=== PATIENT | female | born 1970 | race Caucasian/White ===

== ENCOUNTER 2018-08-26 18:59 | Emergency (ER) | payer SELFPAY ==
[2018-08-26] VITALS (10 sets, daily range): BP systolic 130; BP diastolic 80; PULSE 87–125; RESP 20–32; TEMP 37.1–37.7; O2SAT 94–95
--- NOTE | 2018-08-26 19:13 | W.ED.GENAD ---
Discharge Plan Disposition Patient Disposition: HOME Condition: Fair Discharge Details Chief Complaint: RespSymp Clinical Impression: Pneumonia Primary Care Provider: Unknown,Unknown ED Provider: Izabela Gonsalez Home Meds and New Rx's Prescriptions: New azithromycin 250 mg tablet 250 mg PO DAILY Qty: 4 RF: 0 Continued ibuprofen 800 mg Tablet 800 mg PO TID PRNRF: 0 Theraflu Multi-Symptom Cold 10-20-500 mg Powder In Packet 1 cap PO PRN PRNRF: 0 Discharge Instructions Instructions: Pneumonia (ED) Additional Instructions: Encourage hydration. Stop smoking. Tylenol and/or Ibuprofen as needed for discomfort. Take antibiotics as prescribed. Please follow up with primary care next week if not improved. If you develop shortness of breath, difficulty breathing, inability to stay hydrated or other new/worsening symptoms please seek care urgently once again. Stand Alone Forms: Work Release Discharge Data Discharge Date/Time-TO BE ENTERED AT DEPARTURE: 08/26/18 20:49 Medical Decision Making Patient 47 year old female, accompanied by friend, with c/c of URI x 1 week. PMH significant for splenectomy. She endorses cough, nausea, diarrhea, sore throat, nasal congestion, body aches. No CP or abdominal pain. Endorses fevers/chills. States that symptoms had been improving but have worsened today. On exam, patient has rhonchi and crackles on the right side, rhonchi primarily in right middle lobe. Patient is an active smoker. Patient appears fatigued and dehydrated. Pulse 125, afebrile. Appears nontoxic. Plan to give Tylenol and Ibuprofen to help with discomfort, will hydrate. Concerned for pneumonia. Will obtain cxr to evaluate. CXR reviewed by radiologist: FINDINGS: Lungs: Hazy/patchy opacities in the left lung base are noted. Remainder of the lungs are clear. No large effusions are noted. Pleural space: See Lungs Finding. Heart/Mediastinum: Unremarkable. No cardiomegaly. Bones/joints: Unremarkable. IMPRESSION: Differential for left lung base findings includes early/developing airspace disease versus atelectasis in the appropriate clinical setting. Labs without signfiicant abnormality. Discussed findings with the patient. She will be treated with Azithromycing. encouraged hydration. Advised on new/worsening symptoms and when to seek care urgently once again. Advised f/u with PCP in one week if not improved. Will prescribe Zofran to help with symptomatic management. Encouraged smoking cessation. All of her questions and concerns were addressed, she is in agreement iwth this plan. HPI General Mode of arrival: ambulatory. Date/Time Provider Initiated Documentation: 08/26/18 19:12. Limitations to Documentation: no limitations. Information obtained by: patient. History of Present Illness 47 year old F presents to the emergency department with the chief complaint of URI, described as moderate, with intensity rated at 5. Quality is described as aching (endorses body aches), Patient started experiencing this day(s) (7) and it has been constant. No relieving factors improve symptom(s), No exacerbating factors reported . Patient notes cough, fever/chills, loss of appetite, nausea/vomiting (enodrses nuasea, no vomiting) and shortness of breath (with cough); denies chest pain, headaches and rash. Patient did receive the following treatments prior to arrival, none Related Data Home Medications Medication Instructions Recorded Confirmed Theraflu Multi-Symptom Cold 1 cap PO PRN PRN 08/26/18 08/26/18 azithromycin 250 mg PO DAILY #4 tab 08/26/18 ibuprofen 800 mg PO TID PRN 08/26/18 08/26/18 Previous Rx's Medication Instructions Recorded azithromycin 250 mg PO DAILY #4 tab 08/26/18 Allergies Allergy/AdvReac Type Severity Reaction Status Date / Time No Known Allergies Allergy Unverified 08/26/18 19:07 General Stated Complaint: RespSymp ENRIQUE: 3 Review of Systems Constitutional Reports as per HPI, Reports chills, Reports fatigue, Reports fever(s), Denies headache(s) and Reports poor appetite Eyes Reports as per HPI, Denies eye discharge and Denies irritation ENT Reports as per HPI, Denies ear discharge, Denies otalgia, Denies headache(s), Reports nasal congestion, Reports nasal discharge, Denies sinus pain, Denies sinus pressure and Reports sore throat Cardiovascular Reports as per HPI, Denies chest pain and Denies dyspnea Respiratory Reports as per HPI, Reports cough, Denies hemoptysis, Denies dyspnea, Denies stridor and Denies wheezing Gastrointestinal Reports as per HPI, Denies abdominal pain, Reports diarrhea (was having diarrhea yesterday, this has since improved), Reports nausea and Denies vomiting Musculoskeletal Reports as per HPI (generalized body aches) Integumentary/Breasts Reports as per HPI and Denies rash Neurologic Denies headache(s) Endocrine Reports fatigue Allergic/Immunologic Denies wheezing [facility] Social History Smoking/Tobacco Use Status: Current every day Exam Const General: cooperative, healthy appearing, comfortable, no acute distress, well developed and well groomed Nutritional Appearance: average body habitus and well nourished Orientation: alert and awake [facility] Head: normal to inspection, normocephalic and atraumatic Ears: hearing grossly normal bilaterally, external ears normal and TM's normal bilaterally General nose exam: external nose normal and nares normal Face and sinus: normal facial exam, sinuses nontender and face symmetric Mouth: oral mucosae normal, lip normal, tongue normal, oropharynx normal and moist mucous membranes Teeth and gingiva: dentition normal Throat: posterior oropharynx normal, tonsils normal and uvula midline Eyes General: appearance normal, both eyes and all related structures Neck Neck: normal visual inspection, full ROM, no lymphadenopathy and no meningeal signs Resp Effort & Inspection: normal respiratory effort, able to speak in complete sentences and no respiratory distress Auscultation: crackles on the right in the mid lung roman, no rales, no rhonchi and wheezes expiratory wheezes, right lower and right upper Cardio Rate: regular rate Rhythm: regular rhythm Heart Sounds: S1 normal and S2 normal Skin General skin exam: no rashes or lesions noted Neuro General: alert and awake Cognition: normal cognition Speech: speech normal Gait: normal gait Psych Appearance: grossly normal and well kempt Mental Status: mental status grossly normal Speech and Movement: speech and movement normal Course Vital Signs Temperature 37.1 C 08/26/18 19:04 Pulse 125 H 08/26/18 19:04 Respiratory Rate 22 08/26/18 19:04 Blood Pressure 130/80 08/26/18 19:04 Pulse Oximetry 95 08/26/18 19:04 Temperature 37.1 C 08/26/18 19:04 Temperature Source Skin 08/26/18 19:04 Pulse 125 H 08/26/18 19:04 Respiratory Rate 22 08/26/18 19:04 Respiratory Effort 08/26/18 19:09 Blood Pressure 130/80 08/26/18 19:04 Blood Pressure Position Sitting 08/26/18 19:04 Pulse Oximetry 95 08/26/18 19:04 Oxygen Delivery Method Room Air 08/26/18 19:04 Oxygen Flow Rate 0 08/26/18 19:04 Pain Level 5 08/26/18 19:04
--- NOTE | 2018-08-26 19:22 | DI.RAD_ITS ---
SYMPTOM/DIAGNOSIS: COUGH, RHONCHI PA AND LATERAL CHEST: A region of increased density is noted in the left lower lobe projected over the left costophrenic angle on the PA examination. The right lung is clear. The heart is not enlarged. The hilar structures, mediastinum and tracheal air column appear intact. SUMMARY: Findings which could represent a small patch of pneumonitis versus atelectasis in the left lung. The findings to be correlated with the patient's clinical status.
[2018-08-26] MEDS: Normal Saline 1,000 ML 1000 ML IV (19:30)
[2018-08-26 19:43] LABS: Abs Immature Grans 0.01 k/cumm (0.0-0.09); Absolute Basophil Count 0.05 k/cumm (0.0-0.2); Absolute Lymphocyte Count 2.19 k/cumm (1.2-3.4); Absolute Monocyte Count 0.74 k/cumm (0.11-0.7); Absolute Neutrophil Count 4.27 k/cumm (1.2-6.7); Basophils % 0.7; HCT 44.3 % (36.0-46.0); Immature Grans % 0.1; Lymphocytes % 30.2; Mean Corp. HGB Concentration 33.9 g/dL (32.0-36.0); Mean Corpuscular Hemoglobin 31.5 pg (27.0-33.0); Mean Corpuscular Volume 93.1 fL (80-95); Mean Platelet Volume 9.9 fL (8.0-11.0); Monocytes % 10.2; Neutrophils % 58.8; Platelet Count 347 x1000/uL (130-400); RBC 4.76 m/cumm (4.00-5.20); White Blood Cell Count 7.26 k/cumm (4.4-10.8)
[2018-08-26] MEDS: Ibuprofen 600 MG TAB PO (19:43)
[2018-08-26] MEDS: Acetaminophen 500 MG TAB 1000 MG PO (19:43)
--- NOTE | 2018-08-26 20:14 | ED.GENADUL_ITS ---
Discharge Plan Disposition Patient Disposition: HOME Condition: Fair Discharge Details Chief Complaint: RespSymp Clinical Impression: Pneumonia Primary Care Provider: Unknown,Unknown ED Provider: Izabela Gonsalez Home Meds and New Rx's Prescriptions: New azithromycin 250 mg tablet 250 mg PO DAILY Qty: 4 RF: 0 Continued ibuprofen 800 mg Tablet 800 mg PO TID PRNRF: 0 Theraflu Multi-Symptom Cold 10-20-500 mg Powder In Packet 1 cap PO PRN PRNRF: 0 Discharge Instructions Instructions: Pneumonia (ED) Additional Instructions: Encourage hydration. Stop smoking. Tylenol and/or Ibuprofen as needed for discomfort. Take antibiotics as prescribed. Please follow up with primary care next week if not improved. If you develop shortness of breath, difficulty breathing, inability to stay hydrated or other new/worsening symptoms please seek care urgently once again. Stand Alone Forms: Work Release Discharge Data Discharge Date/Time-TO BE ENTERED AT DEPARTURE: 08/26/18 20:49 Medical Decision Making Patient 47 year old female, accompanied by friend, with c/c of URI x 1 week. PMH significant for splenectomy. She endorses cough, nausea, diarrhea, sore throat, nasal congestion, body aches. No CP or abdominal pain. Endorses fevers/chills. States that symptoms had been improving but have worsened today. On exam, patient has rhonchi and crackles on the right side, rhonchi primarily in right middle lobe. Patient is an active smoker. Patient appears fatigued and dehydrated. Pulse 125, afebrile. Appears nontoxic. Plan to give Tylenol and Ibuprofen to help with discomfort, will hydrate. Concerned for pneumonia. Will obtain cxr to evaluate. CXR reviewed by radiologist: FINDINGS: Lungs: Hazy/patchy opacities in the left lung base are noted. Remainder of the lungs are clear. No large effusions are noted. Pleural space: See Lungs Finding. Heart/Mediastinum: Unremarkable. No cardiomegaly. Bones/joints: Unremarkable. IMPRESSION: Differential for left lung base findings includes early/developing airspace di sease versus atelectasis in the appropriate clinical setting. Labs without signfiicant abnormality. Discussed findings with the patient. She will be treated with Azithromycing. encouraged hydration. Advised on new/worsening symptoms and when to seek care urgently once again. Advised f/u with PCP in one week if not improved. Will prescribe Zofran to help with symptomatic management. Encouraged smoking cessation. All of her questions and concerns were addressed, she is in agreement iwth this plan. HPI General Mode of arrival: ambulatory . Date/Time Provider Initiated Documentation: 08/26/18 19:12 . Limitations to Documentation: no limitations . Information obtained by: patient . History of Present Illness 47 year old F presents to the emergency department with the chief complaint of URI, described as moderate, with intensity rated at 5. Quality is described as aching (endorses body aches), Patient started experiencing this day(s) (7) and it has been constant. No relieving factors improve symptom(s), No exacerbating factors reported . Patient notes cough, fever/chills, loss of appetite, nausea/vomiting (enodrses nuasea, no vomiting) and shortness of breath (with cough); denies chest pain, headaches and rash. Patient did receive the following treatments prior to arrival, none Related Data Home Medications Medication Instructions Recorded Confirmed Theraflu Multi-Symptom Cold 1 cap PO PRN PRN 08/26/18 08/26/18 azithromycin 250 mg PO DAILY #4 tab 08/26/18 ibuprofen 800 mg PO TID PRN 08/26/18 08/26/18 Previous Rx's Medication Instructions Recorded azithromycin 250 mg PO DAILY #4 tab 08/26/18 Allergies Allergy/AdvReac Type Severity Reaction Status Date / Time No Known Allergies Allergy Unverified 08/26/18 19:07 General Stated Complaint: RespSymp ENRIQUE: 3 Review of Systems Constitutional Reports as per HPI, Reports chills, Reports fatigue, Reports fever(s), Denies headache(s) and Reports poor appetite Eyes Reports as per HPI, Denies eye discharge and Denies irritation ENT Reports as per HPI, Denies ear discharge, Denies otalgia, Denies headache(s), Reports nasal congestion, Reports nasal discharge, Denies sinus pain, Denies sinus pressure and Reports sore throat Cardiovascular Reports as per HPI, Denies chest pain and Denies dyspnea Respiratory Reports as per HPI, Reports cough, Denies hemoptysis, Denies dyspnea, Denies stridor and Denies wheezing Gastrointestinal Reports as per HPI, Denies abdominal pain, Reports diarrhea (was having diarrhea yesterday, this has since improved), Reports nausea and Denies vomiting Musculoskeletal Reports as per HPI (generalized body aches) Integumentary/Breasts Reports as per HPI and Denies rash Neurologic Denies headache(s) Endocrine Reports fatigue Allergic/Immunologic Denies wheezing [facility] Social History Smoking/Tobacco Use Status: Current every day Exam Const General: cooperative, healthy appearing, comfortable, no acute distress, well developed and well groomed Nutritional Appearance: average body habitus and well nourished Orientation: alert and awake [facility] Head: normal to inspection, normocephalic and atraumatic Ears: hearing grossly normal bilaterally, external ears normal and TM's normal bilaterally General nose exam: external nose normal and nares normal Face and sinus: normal facial exam, sinuses nontender and face symmetric Mouth: oral mucosae normal, lip normal, tongue normal, oropharynx normal and moist mucous membranes Teeth and gingiva: dentition normal Throat: posterior oropharynx normal, tonsils normal and uvula midline Eyes General: appearance normal, both eyes and all related structures Neck Neck: normal visual inspection, full ROM, no lymphadenopathy and no meningeal signs Resp Effort & Inspection: normal respiratory effort, able to speak in complete sentences and no respiratory distress Auscultation: crackles on the right in the mid lung roman, no rales, no rhonchi and wheezes expiratory wheezes, right lower and right upper Cardio Rate: regular rate Rhythm: regular rhythm Heart Sounds: S1 normal and S2 normal Skin General skin exam: no rashes or lesions noted Neuro General: alert and awake Cognition: normal cognition Speech: speech normal Gait: normal gait Psych Appearance: grossly normal and well kempt Mental Status: mental status grossly normal Speech and Movement: speech and movement normal Course Vital Signs Temperature 37.1 C 08/26/18 19:04 Pulse 125 H 08/26/18 19:04 Respiratory Rate 22 08/26/18 19:04 Blood Pressure 130/80 08/26/18 19:04 Pulse Oximetry 95 08/26/18 19:04 Temperature 37.1 C 08/26/18 19:04 Temperature Source Skin 08/26/18 19:04 Pulse 125 H 08/26/18 19:04 Respiratory Rate 22 08/26/18 19:04 Respiratory Effort 08/26/18 19:09 Blood Pressure 130/80 08/26/18 19:04 Blood Pressure Position Sitting 08/26/18 19:04 Pulse Oximetry 95 08/26/18 19:04 Oxygen Delivery Method Room Air 08/26/18 19:04 Oxygen Flow Rate 0 08/26/18 19:04 Pain Level 5 08/26/18 19:04
[2018-08-26 20:16] LABS: ALT 15 U/L (12-78); AST 18 U/L (15-37); Albumin 3.2 g/dL (3.4-5.0); Alkaline Phosphatase 82 U/L (46-116); Anion Gap 9.5 mmol/L (3-11); BUN 7 mg/dL (7-18); Bilirubin, Total 0.1 mg/dL (0.2-1.0); CO2 24.5 mmol/L (21.0-32.0); CREATININE 0.77 mg/dL (0.55-1.02); Calcium 8.6 mg/dL (8.5-10.1); Chloride 104 mmol/L (98-107); Glucose 104 mg/dL (70-100); Potassium 3.8 mmol/L (3.5-5.1); Sodium 138 mmol/L (136-145); Total Protein 7.5 g/dL (6.4-8.2)
--- NOTE | 2018-08-26 20:21 | DI.VRAD_ITS ---
EXAM: XR Chest, 2 Views EXAM DATE/TIME: 08/26/2018 7:24 PM CLINICAL HISTORY: 47 years old, female; Signs and symptoms; Cough TECHNIQUE: XR of the chest, 2 views. COMPARISON: No relevant prior studies available. FINDINGS: Lungs: Hazy/patchy opacities in the left lung base are noted. Remainder of the lungs are clear. No large effusions are noted. Pleural space: See Lungs Finding. Heart/Mediastinum: Unremarkable. No cardiomegaly. Bones/joints: Unremarkable. IMPRESSION: Differential for left lung base findings includes early/developing airspace disease versus atelectasis in the appropriate clinical setting. Dictated and Authenticated by: Nathan Patterson MD. Ordering:MIGUEL Gurrola MD
[2018-08-26] MEDS: Azithromycin 250 MG TAB 500 MG PO (20:41)
== END 2018-08-26 20:49 | disposition home or self-care (01) ==
PROVIDERS: Emergency Provider Physician Assistant
DX: J18.9 Pneumonia, unspecified organism (principal); F17.210 Nicotine dependence, cigarettes, uncomplicated
CPT/HCPCS: 36415; 80053; 96360; 99283; 71046; 85025

== ENCOUNTER 2018-08-26 20:09 | Emergency (ER) | payer SELFPAY | END 2018-08-26 20:25 | LOC: ER 20:14 | PROVIDERS: Emergency Provider Emergency Medicine | DX: R69 Illness, unspecified (principal) ==

== ENCOUNTER 2019-10-07 22:38 | Emergency (ER) | payer SELFPAY ==
--- NOTE | 2019-10-07 22:30 | DI.RAD_ITS ---
EXAM: XR ANKLE RT COMPLETE INDICATION: Fall, pain COMPARISON: No exams were available for comparison TECHNIQUE: 2D digital imaging was performed. FINDINGS: No fracture or dislocation is seen. There is no ankle mortise widening. No talar dome defect is see n. There are no significant degenerative changes. IMPRESSION: Negative right ankle. DATA REPOSITORY: RADIATION DOSE DELIVERED:
[2019-10-07 22:33] VITALS: BP 117/96; PULSE 92; RESP 18; TEMP 36.9; O2SAT 99
--- NOTE | 2019-10-07 22:35 | ED.GENADUL_ITS ---
Discharge Plan Disposition Patient Disposition: HOME Condition: Good Discharge Details Chief Complaint: Orthopedic Clinical Impression: Ankle sprain, Closed fracture of first metatarsal bone Primary Care Provider: Unknown,Unknown ED Provider: Izabela Gonsalez Home Meds and New Rx's Prescriptions: Continued ibuprofen 800 mg Tablet 800 mg PO TID PRNRF: 0 Discharge Instructions Instructions: Ankle Sprain (ED) Additional Instructions: Encourage rest, ice, elevation. Tylenol and/or ibuprofen as needed for discomfort. Please continue with the boot until evaluated by orthopedics. You may wean off the crutches as tolerated. Please continue with the crutches while severe pain persist. There is no evidence of fracture or dislocation in your ankle. There is a potential for small fracture in the base of your great toe but you have declined further imaging today. You will need follow-up with orthopedics for reassessment of this. Please call them tomorrow to schedule fo llow-up appointment, number listed below. If you develop new or worsening symptoms please seek care urgently once again. Referrals: Tian Mayberry MD [ [facility]] - Medical Decision Making Patient is a 49-year-old female, brought in the pain EMS, with chief complaint of right ankle pain. She reports a prior to arrival she was walking her dog when she slipped on the ice and suffered a injury to the right ankle. States that since that time she has not been able to ambulate. Denies other injury time of the incident. Did not strike her head, no loss of consciousness. Denies any neck, chest, back pain. No nausea vomiting. Was given 100 mcg of fentanyl prior to arrival. States that she did have 1 beer prior to arrival, was smoking marijuana. No previous injuries or surgery to this ankle. On exam, patient is writhing in the bed. She is flailing the right leg in the air. She full range of motion of the hips and knee. No ligamentous injury, no swelling is appreciated. She has no tenderness to palpation over the proximal fibula. Show difficulty pinpointing where the pain in the ankle is both on history as well as on physical exam. She has no tenderness over the Achilles tendon, normal De La Cruz test. She still holding the ankle in a taut and flexed position. Does not wish to range the ankle secondary to discomfort. She is 2+ distal pulses. No appreciable swelling. Minimal discomfort with palpation over the medial and lateral malleoli. No pain with palpation about the foot. No pain over the proximal fifth metatarsal. Good range of motion of her toes. No ecchymosis or abrasion. No evidence of trauma. Exam is otherwise benign. Plan for Tylenol, ibuprofen and obtain images of ankle XR reviewed by radiologist: FINDINGS: Bones/joints: Normal trabecular architecture is seen throughout the distal right tibia and fibula and the talus with no right ankle fracture or dislocation detected. Ankle mortise is preserved. A 5 mm linear ossific density projected along the dorsomedial margin of the proximal shaft of the great toe metatarsal on the 2nd of 3 images is suspicious for a subtle avulsion fracture and could represent recent injury. Is Soft tissues: Unremarkable. IMPRESSION: 1. Question subtle avulsion fracture along the dorsal medial margin of the proximal shaft of the right 1st metatarsal as described above. 2. Consider CT for further evaluation. At this time, this does not correlate clinically. She does not have any focal tenderness. Plan for imaging of the foot for further evaluation. Do not feel that CT is appropriate at this point. Our CT machine is also down at the moment. Patient was fitted with a boot and is relaxing in the boot. I believe some of her discomfort associated with her tightening her muscles so much and causing increased discomfort in a sprain area. Discussed this concern as well as plan with the patient and at this time, she is refusing further imaging. She continues to endorse pain in the foot and does not want to take the boot back off for further imaging. She is requesting discharge at this time. She is received fentanyl from EMS, Tylenol and ibuprofen from us. EMS as well as had noted the patient did appear to be under the influence did smell of marijuana. She did endorse alcohol intake earlier tonight. I did review the PDMP and I did not see any evidence of narcotic abuse. However, I am concerned based on her admitted history of smoking crack cocaine, drink alcohol and marijuana usage for potential for abuse. I am c oncerned this could potentially put her in danger and would prefer to hold off on narcotic usage in this patient. I encouraged rest, ice, elevation. Tylenol and ibuprofen as needed for discomfort. As there is a concern for possible fracture which she is unable to tolerate further imaging today, plan for follow-up with orthopedics. Advised that she call them tomorrow to schedule follow-up appointment. HPI General Mode of arrival: EMS . Date/Time Provider Initiated Documentation: 10/07/19 22:55 . Limitations to Documentation: no limitations . Information obtained by: patient, EMS and RN notes reviewed . History of Present Illness 49 year old F presents to the emergency department with the chief complaint of right ankle pain, described as severe, with intensity rated at 10. Quality is described as sharp, and is localized to the right and lower extremity. Patient reports no radiation. Patient started experiencing this minute(s) and it has been constant. No relieving factors improve symptom(s), No exacerbating factors reported . Patient notes no other symptoms.. Patient did receive the following treatments prior to arrival, other (100mcg fentanyl) Related Data Home Medications Medication Instructions Recorded Confirmed ibuprofen 800 mg PO TID PRN 08/26/18 10/07/19 Allergies Allergy/AdvReac Type Severity Reaction Status Date / Time No Known Allergies Allergy Unverified 10/07/19 22:35 General ENRIQUE: 3 Review of Systems Constitutional Constitutional: Reports as per HPI, Denies chills, Denies fever(s), Denies headache(s) and Denies weakness ENT Ears, Nose, Mouth, and Throat: Denies headache(s) Cardiovascular Cardiovascular: Reports as per HPI Respiratory Respiratory: Reports as per HPI and Denies cough Musculoskeletal Musculoskeletal: Reports as per HPI and Denies tingling Integumentary/Breasts Skin/Breast: Reports as per HPI, Denies rash and Denies wounds Neurologic Neurologic: Reports as per HPI, Denies headache(s), Denies tingling, Denies paresthesias and Denies weakness COUNT INCLUDES THE [facility] Medical History (Updated 10/07/19 @ 23:35 by CONSUELO Prado) No acute medical problems (Acute) Surgical History (Updated 10/07/19 @ 22:36 by Vicky Tello) History of splenectomy (Acute) Previous back surgery (Acute) Social History Smoking/Tobacco Use Status: Current every day Tobacco Type: cigarettes Drug use: Daily Substance use type: marijuana Do you feel safe at home: Yes Do you feel safe in your relationship?: Yes Exam Const General: cooperative, healthy appearing, no acute distress, well developed, acute distress (patient is writhing in the bed, right leg is flailing in the air) and disheveled Nutritional Appearance: average body habitus and well nourished Orientation: alert and awake Resp Effort & Inspection: normal respiratory effort, able to speak in complete sentences and no respiratory distress Cardio Rate: regular rate Rhythm: regular rhythm Skin General skin exam: no rashes or lesions noted Lesions: no lesions Rashes: no rashes Trauma: no lacerations or abrasions Neuro General: alert and awake Cognition: normal cognition Speech: speech normal Gait: normal gait Motor: muscle tone normal throughout Sensory Exam: no sensory deficits noted Extrem General: normal to inspection, abnormal ROM, normal capillary refill, no joint enlargement, no pedal edema, no calf tenderness, abnormal gait (has not been able to ambulate since fall) and no edema Right lower extremity: normal to inspection, normal capillary refill, no joint enlargement, knee Details: normal to inspection, normal ROM and knee ligament exam normal; no tenderness (no pain over proximal fibula), no swelling, no lacerations, no ecchymosis and no crepitus, lower leg Details: normal to inspection and no edema; no erythema, no tenderness, no localized swelling, no abrasions, no lacerations, no ecchymosis and no deformity, ankle Details: normal to inspection, tenderness (diffusely tender, difficult to determine what area is worse) and no edema; no swelling, ROM abnormal (patient holding ankle in flexed position, does not want to staighten or relax), no unusual warmth, no abrasions, no lacerations, no ecchymosis, no crepitus and achilles tendon exam normal (normal exam, no palpable defect, no pain with palpation) and foot Details: normal capillary refill, normal to inspection, toes with normal ROM, no edema, vascular exam Details: dorsalis pedis pulse present, posterior tibial pulse present and normal capillary refill and motor-sensory exam Details: light-touch normal; no tenderness, no unusual warmth, no ecchymosis and no crepitus; ROM limited (refusing to move right ankle secondary to pain) and no edema Psych Appearance: grossly normal and well kempt Mental Status: mental status grossly normal Speech and Movement: speech and movement normal
[2019-10-07] MEDS: Acetaminophen 500 MG TAB 1000 MG PO (22:42)
[2019-10-07] MEDS: Ibuprofen 600 MG TAB PO (22:42)
--- NOTE | 2019-10-07 23:03 | DI.VRAD_ITS ---
PROCEDURE INFORMATION: Exam: XR Right Ankle Exam date and time: 10/07/2019 10:45 PM Age: 49 years old Clinical indication: Injury or trauma; Fall; Initial encounter; Sprain or strain; Ankle; Right; Injury date: 10/07/19 TECHNIQUE: Imaging protocol: XR Right ankle. Views: 3 or more views. COMPARISON: No relevant prior studies available. FINDINGS: Bones/joints: Normal trabecular architecture is seen throughout the distal right tibia and fibula and the talus with no right ankle fracture or dislocation detected. Ankle mortise is preserved. A 5 mm linear ossific density projected along the dorsomedial margin of the proximal shaft of the great toe metatarsal on the 2nd of 3 images is suspicious for a subtle avulsion fracture and could represent recent injury. Is Soft tissues: Unremarkable. IMPRESSION: 1. Question subtle avulsion fracture along the dorsal medial margin of the proximal shaft of the right 1st metatarsal as described above. 2. Consider CT for further evaluation. Dictated and Authenticated by: Balwinder Bragg MD. Ordering:MIGUEL Gurrola MD
== END 2019-10-07 23:55 | disposition home or self-care (01) ==
LOC: ER 23:58
PROVIDERS: Emergency Provider Physician Assistant
DX: S92.314A Nondisplaced fracture of first metatarsal bone, right foot, initial encounter for closed fracture (principal); S93.401A Sprain of unspecified ligament of right ankle, initial encounter; W00.0XXA Fall on same level due to ice and snow, initial encounter
CPT/HCPCS: 28470; 29515; 99283; 73610; E0114; L4361

== ENCOUNTER 2023-07-05 13:06 | Emergency (ER) | payer MEDICAID, SELFPAY ==
[2023-07-05 13:10] VITALS: BP 120/93; PULSE 110; RESP 20; TEMP 37.2; O2SAT 100
[2023-07-05 13:11] VITALS: BP 120/93; PULSE 107; O2SAT 99
[2023-07-05 13:12] VITALS: O2SAT 100
[2023-07-05] MEDS: Amoxicillin 875/Clav. 125 TAB PO (13:38)
[2023-07-05] MEDS: ACETAMINOPHEN 1,000 MG/100 ML BTL 400 MG IVPB (13:38)
[2023-07-05 13:51] VITALS: O2SAT 100
--- NOTE | 2023-07-05 14:50 | DI.RAD_ITS ---
Exam(s) XR HUMERUS LT EXAM: XR HUMERUS LT CLINICAL HISTORY: dog bite. TECHNIQUE: 2D digital imaging was performed. COMPARISON: No exams were available for comparison FINDINGS: Two views. There is evidence of soft tissue injury at the mid upper arm level with a few foci of air-gas in the anterior soft tissues, commensurate with the dog bite history here. There is no radiopaque foreign body in the soft tissues. No humerus fracture evident. IMPRESSION: Soft tissue findings as above. No osseous findings. DATA REPOSITORY: RADIATION DOSE DELIVERED:
--- NOTE | 2023-07-05 15:01 | ED.GENADUL_ITS ---
Discharge Plan Disposition Patient Disposition: Home Discharge Details Clinical Impression: Dog bite Primary Care Provider: None,None ED Provider: Lui Murray Home Meds and New Rx's Prescriptions: New amoxicillin-pot clavulanate 875-125 mg tablet 1 tab PO Q12H Qty: 13 0RF Continued ibuprofen 800 mg Tablet 800 mg PO TID PRN Discharge Instructions Instructions: Animal Bite (ED) Additional Instructions: Given how large your dog bite is it is recommended that you have a wound recheck at a local urgent care in 2 days. Watch for any signs of infection and return immediately to the emergency department if these occur. Otherwise keep dressing in place for the next 24 hours and then keep wound clean and dry. Please perform dressing changes twice a day and you may clean with mild soap and water. Return to the emergency department 12 days for suture removal. Referrals: Primary Care Provider [Outside] - 2 days Medical Decision Making Patient presenting the emergency department for chief complaint of dog bite to left arm. Patient states that she was walking her dog when another dog approached her dog and they started fighting. She attempted to break up the dog fight and the dog latched onto her left upper arm. She states significant laceration to her arm. She states some slight local tingling around the wound only but states otherwise normal function of the extremity to the point initially she did not even realize that she had been bitten. Patient denies any other injury or trauma, states it has been a while since she has had tetanus, no other significant contributing past medical history. Physical exam shows a significant flap laceration with exposed adipose tissue. Laceration is half- nickerson shaped with the bottom measurement of 10cm and the upper circumference 12 cm. Patient has full strength of upper extremity normal sensation distal to the injury and otherwise noncontributory exam. Please see procedure note for suture repair which was performed with 14 sutures. Copious irrigation was used prior to wound closure which was loosely approximated. Radiological imaging was performed along with tetanus. Patient has no signs of fracture or radiodense foreign body. Did discuss with patient rabies and after discussion of rabies vaccination patient states that she she does not want rabies medication at this time. She was encouraged to contact the project management instructor of the dog to have dog quarantine for 10 days as she does state that she believes it is a domesticated dog. Patient placed on Augmentin due to extensive nature of wound and patient encouraged to follow-up with local urgent care given that she does not have a primary care provider for wound recheck in 2 days. After discussion of diagnosis and plan of care patient has no further needs, questions, or concerns and states clear understanding to return to the emergency department for any worsening symptoms. This documentation was generated using [employer] dictation system, please disregard any oddities of phrase or misspellings. Imaging Data Radiologic Study: Imaging: X-Ray Radiologist's impression: Exam(s) PROCEDURE INFORMATION: Exam: XR Left Humerus Exam date and time: 07/05/2023 2:44 PM Age: 52 years old Clinical indication: Other: Dog bite TECHNIQUE: Imaging protocol: Radiologic exam of the left humerus. Views: 2 or more views. COMPARISON: CR XR CHEST 2V PA LATERAL 08/26/2018 7:57 PM FINDINGS: Bones/joints: No fracture or other acute osseous abnormality of the left humerus is identified. Small foci of gas are noted within the soft tissues of the left arm at the level of the mid humerus. No radiodense soft tissue foreign body detected. Soft tissues: See Bones/joints finding. IMPRESSION: No fracture identified. No radiodense soft tissue foreign body detected. Dictated and Authenticated by: Jose Dc MD. HPI General Mode of arrival: ambulatory . Date/Time Provider Initiated Documentation: 07/05/23 13:11 . Limitations to Documentation: no limitations . Information obtained by: patient and RN notes reviewed . History of Present Illness 52 year old F presents to the emergency department with the chief complaint of Dog bite left arm, described as severe, Patient reports no radiation. Patient started experiencing this minute(s) (30) and it has been constant. No relieving factors improve symptom(s), No exacerbating factors reported . Patient notes no other symptoms.. Patient did receive the following treatments prior to arrival, none Related Data Home Medications Medication Instructions Recorded Confirmed ibuprofen 800 mg tablet 800 mg PO TID PRN 08/26/18 07/05/23 amoxicillin 875 mg-potassium 1 tab PO Q12H #13 tabs 07/05/23 clavulanate 125 mg tablet Previous Rx's Medication Instructions Recorded amoxicillin 875 mg-potassium 1 tab PO Q12H #13 tabs 07/05/23 clavulanate 125 mg tablet Allergies Allergy/AdvReac Type Severity Reaction Status Date / Time No Known Allergies Allergy Unverified 07/05/23 13:16 General Stated Complaint: AnimalBite ENRIQUE: 3 Review of Systems Constitutional Constitutional: Denies headache(s) ENT Ears, Nose, Mouth, and Throat: Denies headache(s) Cardiovascular Cardiovascular: Denies syncope Musculoskeletal Musculoskeletal: Denies arthralgias, Denies limited range of motion and Denies muscle weakness Integumentary/Breasts Skin/Breast: Reports as per HPI and Reports wounds Neurologic Neurologic: Denies syncope and Denies headache(s) PFSH All Active Problems (Updated 07/05/23 @ 15:13 by Lui Murray NP) Dog bite (Acute) Medical History No acute medical problems Surgical History Previous back surgery History of splenectomy Social History Smoking/Tobacco Use Status: Current every day Tobacco Type: cigarettes Smoking risk assessment performed?: Yes Alcohol Intake: current Alcohol Intake frequency: a few times a week Alcohol type: beer Drug use: Daily Substance use type: marijuana Housing: apartment Do you feel safe at home: Yes Do you feel safe in your relationship?: Yes Exam Const General: cooperative and anxious Orientation: alert, awake and oriented x3 HENMT Head: normal to inspection and atraumatic Mouth: moist mucous membranes Resp Effort & Inspection: normal respiratory effort, able to speak in complete sentences and no respiratory distress Cardio Rate: regular rate Rhythm: regular rhythm Skin General skin exam: no rashes or lesions noted Neuro General: patient alert, patient awake, patient oriented x3, moves all extremities and no focal motor deficits Sensory Exam: no sensory deficits noted Extrem General: normal exam except as noted Left upper extremity: shoulder/upper arm Details: penetrating wound upper arm mid sonny-medial Details: single Shoulder/upper arm images: 2 1. Flap laceration from dog bite Course Vital Signs Vital signs: Vital Signs Temperature 37.2 C 07/05/23 13:10 Pulse 110 H 07/05/23 13:10 Respiratory Rate 20 07/05/23 13:10 Blood Pressure 120/93 H 07/05/23 13:10 Pulse Oximetry 100 07/05/23 13:10 Temperature 37.2 C 07/05/23 13:10 Temperature Source Skin 07/05/23 13:10 Pulse 107 H 07/05/23 13:11 Respiratory Rate 20 07/05/23 13:10 Respiratory Effort Normal, Non-Labored 07/05/23 13:23 Blood Pressure 120/93 H 07/05/23 13:11 Blood Pressure Mean 98 07/05/23 13:11 Blood Pressure Position Sitting 07/05/23 13:10 Pulse Oximetry 100 07/05/23 13:51 Oxygen Delivery Method Room Air 07/05/23 13:10 Oxygen Flow Rate 0 07/05/23 13:10 Pain Level 8 07/05/23 13:10 Procedures Laceration Laceration 1: Site: upper extremity Side (If applicable): left Size (cm): 12 Description: flap and irregular Depth: simple, single layer Local Anesthetic: Lidocaine 1% and with Epi Amount of anesthesia used (mL): 18 Pre-repair: wound explored, irrigated extensively, deep structures intact and wound margins revised Skin layer closed with: other (Prolene) Size (cm): 3-0 Number of sutures: 14 Technique: simple, interrupted PAWSS Have you Been Recently Intoxicated or Drunk Within the Last 30 days?: No Have you Ever Experienced Previous Episodes of Alcohol Withdrawal?: No Have you ever Experienced Withdrawal Seizures?: No Have you ever Experienced Delirium Tremens(DT)s?: No Have you ever undergone Alcohol Rehabilitation Treatment (i.e, inpt ot outpatient treatment programs)?: No Have you ever Experienced Blackouts?: No Have you ever Combined Alcohol with other Downers within the last 90 days?: No Have you ever Combined Alcohol with any other Substance of Abuse during the last 90 days?: No Positive Blood Alcohol level on Presentation? [PCS.BAL]: No Evidence of Increased Autonomic Activity (i.e. HR>120, tremor, sweating, agitation, nausea)?: No Result: 0
--- NOTE | 2023-07-05 15:09 | DI.VRAD_ITS ---
PROCEDURE INFORMATION: Exam: XR Left Humerus Exam date and time: 07/05/2023 2:44 PM Age: 52 years old Clinical indication: Other: Dog bite TECHNIQUE: Imaging protocol: Radiologic exam of the left humerus. Views: 2 or more views. COMPARISON: CR XR CHEST 2V PA LATERAL 08/26/2018 7:57 PM FINDINGS: Bones/joints: No fracture or other acute osseous abnormality of the left humerus is identified. Small foci of gas are noted within the soft tissues of the left arm at the level of the mid humerus. No radiodense soft tissue foreign body detected. Soft tissues: See Bones/joints finding. IMPRESSION: No fracture identified. No radiodense soft tissue foreign body detected. Dictated and Authenticated by: Jose Dc MD. Ordering:JUSTINE Poe MD
[2023-07-05 15:29] VITALS: BP 106/68; PULSE 95; RESP 16; O2SAT 98
== END 2023-07-05 15:30 | disposition home or self-care (01) ==
PROVIDERS: Emergency Provider Nurse Practitioner Family
DX: M79.622 Pain in left upper arm (principal); S41.112A Laceration without foreign body of left upper arm, initial encounter; W54.0XXA Bitten by dog, initial encounter; Y93.01 Activity, walking, marching and hiking
CPT/HCPCS: 12004; 90471; 96374; 96375; 99283; 73060; J0131

== ENCOUNTER 2023-11-27 06:00 | Emergency (ER) | payer MEDICAID, SELFPAY ==
[2023-11-27] VITALS (107 sets, daily range): BP systolic 111–146; BP diastolic 71–132; PULSE 56–99; RESP 14–27; TEMP 36.7–37.2; O2SAT 93–100
--- NOTE | 2023-11-27 06:00 | DI.RAD_ITS ---
Exam(s) XR HIP PELVIS ADULT BL EXAM: XR HIP PELVIS ADULT BL CLINICAL HISTORY: fall from standing, right hip/right pelvis pain. TECHNIQUE: 2D digital imaging was performed. Three views. COMPARISON: No exams were available for comparison FINDINGS: The cross-table lateral views are quite limited. BONES: There is a subcapital fracture of the right femur which is mildly displaced and may be mildly impacted. No additional fractures are identified. no bony destructive lesion is seen. JOINTS: No dislocation present. The hip joint spaces are maintained. SI joints and pubic symphysi s are unremarkable. SOFT TISSUE: Normal. IMPRESSION: Subcapital fracture of the right femur. DATA REPOSITORY: RADIATION DOSE DELIVERED:
[2023-11-27] MEDS: Ketorolac 30 MG/ML VIAL IVP (06:17)
--- NOTE | 2023-11-27 06:17 | W.ED.GENAD ---
Discharge Plan Discharge Details Chief Complaint: Orthopedic ED Provider: Newton Brown Home Meds and New Rx's Prescriptions: No Action ibuprofen 800 mg Tablet 800 mg PO TID PRN [facility] General Date/Time Provider Initiated Documentation: 11/27/23 06:10. HPI Narrative: The patient is a 53-year-old female, with an unknown past medical history, who presents to the emergency department this evening reportedly after getting tangled in a dog leash and falling in the middle of the road. When EMS arrived the patient complained of internal right hip pain and right pelvis pain. The patient refused to be evaluated by EMS at all, and refused to reposition her body or allow them to assess her. Here in the emergency room, the patient is acting hysterically, crying out dramatically when any action is taken to try and evaluate her, such as taking off her shoes. When I tried to move the supposedly affected leg, the patient screamed at me. Visual inspection of the area does not reveal any bruising or deformity. The patient has normal vital signs on arrival that seem incompatible with this amount of pain. After the patient was left alone for less than 5 minutes, she fell asleep and was snoring. Nursing awoke the patient and she reported to them that she smoked some weed and did a line of cocaine before coming to the ER. Related Data Home Medications Medication Instructions Recorded Confirmed ibuprofen 800 mg tablet 800 mg PO TID PRN 08/26/18 11/27/23 Allergies Allergy/AdvReac Type Severity Reaction Status Date / Time No Known Allergies Allergy Unverified 11/27/23 06:16 General Stated Complaint: Orthopedic ENRIQUE: 3 Exam Const Orientation: alert and awake Limitations: behavioral limitations (The patient is hysterical and refuses to comply with the examination.) HENMT Other: The visualized portions of the face appear to be normal. The patient reports that she has pain in her right occiput and points to her occipital ridge. Palpation and visual inspection did not reveal any hematoma, bruising, laceration, or abrasion. Chest Chest: normal inspection of the chest and no tenderness Resp Effort & Inspection: normal respiratory effort and able to speak in complete sentences Auscultation: clear to auscultation bilaterally Cardio Rate: regular rate Rhythm: regular rhythm Heart Sounds: S1 normal and S2 normal GI Palpation: soft Auscultation: normal bowel sounds Back/Spine/Pelvis Back: No ecchymosis and No back tenderness Cervical Spine: cervical ROM normal Thoracic/Lumbar Spine: thoracic and lumbar spine normal to inspection Skin General skin exam: no rashes or lesions noted Rashes: no rashes Neuro Other: The patient appears to be initially responsive to stimuli but quickly fell asleep and began snoring. The patient refused to comply with any neurologic testing. Psych Attitude: belligerent, avoids eye contact and refuses to answer Course Vital Signs Vital signs: Vital Signs Temperature 37.2 C 11/27/23 06:01 Pulse 82 11/27/23 06:01 Blood Pressure 146/132 H 11/27/23 06:01 Pulse Oximetry 100 11/27/23 06:01 Temperature 37.2 C 11/27/23 06:01 Temperature Source Tympanic 11/27/23 06:01 Pulse 82 11/27/23 06:01 Respiratory Effort Normal 11/27/23 06:10 Blood Pressure 146/132 H 11/27/23 06:01 Pulse Oximetry 100 11/27/23 06:01 Oxygen Delivery Method Room Air 11/27/23 06:01 Oxygen Flow Rate 0 11/27/23 06:01 Pain Level 10 11/27/23 06:12 Medical Decision Making The patient was seen and examined. She is hysterical, belligerent, and not cooperative with the examination. Her vital signs are normal including a normal heart rate and normal blood pressure which are incongruent as with the level of hysteria and pain that she seems to be complaining of in her right hip. Shortly after the patient was left alone, she became somnolent and began snoring. The patient admitted to using multiple substances prior to her arrival here in the emergency room. She given IV Toradol here for pain relief and sent to x-ray for imaging of her pelvis and right hip. 0710 - The patient returned from X-ray and she does appears to have a right intertrochanteric hip fracture on my initial evaluation of the films. Labs were added on to the work up, as well as a pre-operative EKG. The patient was signed out to Dr. Solomon for reivew of final radiology reading, review of labs, and disposition with orthopedics. Quality:SDOH Health Related Social Needs: No Data to Display [facility] Medical History No acute medical problems Surgical History Previous back surgery History of splenectomy Social History Smoking/Tobacco Use Status: Current every day Tobacco Type: cigarettes Smoking risk assessment performed?: Yes Alcohol Intake: current Alcohol Intake frequency: a few times a week Alcohol type: beer Drug use: Daily Substance use type: marijuana and crack/cocaine Details: last used marijuana this am, reported did a line of coke this am Housing: apartment Do you feel safe at home: Yes Do you feel safe in your relationship?: Yes
--- NOTE | 2023-11-27 07:00 | RT.EKG_ITS ---
APPROVED REPORT Exam: Resting ECG Reason for Exam: pre-operative Patient Location: E HR:69 bpm ECG Measurements Heart Rate 69 AXIS MI 164 P 64 QRSd 97 QRS 125 QT 397 T 58 QTc 425 Conclusion Sinus rhythm 69 no stemi
[2023-11-27 07:35] LABS: Abs Immature Grans 0.04 10^3/uL (0.0-0.06); Absolute Basophil Count 0.08 10^3/uL (0.0-0.2); Absolute Eosinophil Count 0.25 10^3/uL (0.0-0.7); Absolute Lymphocyte Count 1.63 10^3/uL (1.2-3.4); Absolute Monocyte Count 0.62 10^3/uL (0.1-0.8); Absolute Neutrophil Count 7.98 10^3/uL (1.2-6.7); Basophils % 0.8; Eosinophils % 2.4; HCT 40.4 % (36.0-46.0); HGB 13.5 g/dL (11.2-15.7); Immature Grans % 0.4; Lymphocytes % 15.4; MCH 31.7 pg (27.0-33.0); MCHC 33.4 % (32.0-36.0); MCV 95 fL (80-95); MPV 9.1 fL (8.0-11.0); Monocytes % 5.8; Neutrophils % 75.2; Platelet Count 383 10^3/uL (130-400); RBC 4.26 10^6/uL (3.93-5.22); RDW 13.8 % (11.7-14.6)
--- NOTE | 2023-11-27 07:36 | ED.PROG_ITS ---
Date of service: 11/27/23 Time of Service: 13:30 Medical Decision Making Care assumed from off going provider. Patient had a fall and was brought in by EMS with severe right hip pain. X-ray is concerning for a right hip fracture. Reviewed medical record from [facility] and noted that she does have a history of breast cancer, but has not been seen for over a year. It is unclear that she completed her treatment. I discussed with orthopedics on-call, they are happy to take the case as long as there is no pathologic fracture involved so I will send for CT to further evaluate. 0940 After further review by orthopedic surgery, this patient needs more extensive repair than is offered at this facility currently. I reach out to [facility] to arrange for transfer. I reached out to the APPLICATION HELPER team to provide a hip block for analgesia. 1030 [facility] says there is room and services available in [place]. patient agrees to be transferred there. 1330 patient [place] been accepted [place] [facility] [place] Was refused at [place]. patient seems very comfortable after the block and is agreeable to this transfer plan. 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 Patient was uncooperative with the exam, but does appear to have an intertrochanteric hip fracture on the right side. Pre- operative labs and EKG added on. Last updated by Newton Brown MD at 11/27/23 07:15 Discharge Plan Discharge Details Chief Complaint: Orthopedic Primary Care Provider: Unknown,Unknown ED Provider: Brent Solomon Home Meds and New Rx's Prescriptions: No Action ibuprofen 800 mg Tablet 800 mg PO TID PRN
[2023-11-27 07:45] LABS: Bilirubin Negative (Negative); Blood Negative (Negative); Clarity Clear (Clear); Glucose Negative (Negative); Ketones Negative (Negative); Leukocyte Esterase Trace (Negative); Nitrite Negative (Negative); Specific Gravity 1.015 (1.005-1.025); Urobilinogen 0.2 mg/dL (Up to 0.2)
[2023-11-27] MEDS: MORPHine 4 MG/ML SYR IVP (07:51)
[2023-11-27 07:52] LABS: Anion Gap 7.6 mmol/L (3-11); BUN 8 mg/dL (7-18); CO2 26.4 mmol/L (21.0-32.0); CREATININE 0.6 mg/dL (0.55-1.02); Calcium 8.4 mg/dL (8.5-10.1); Chloride 108 mmol/L (98-107); ETHANOL BLOOD 4.2 mg/dL (<10); Glucose 100 mg/dL (74-106); Potassium 3.4 mmol/L (3.5-5.1); Sodium 142 mmol/L (136-145)
[2023-11-27 07:53] LABS: *AMPHETAMINES SCREEN URINE Negative (Negative); *BARBITURATES SCREEN URINE Negative (Negative); *BENZODIAZEPINES SCREEN URINE Negative (Negative); Cannabinoids THC Positive (Negative); Cocaine Screen,Urine Positive (Negative); METHADONE URINE SCREEN Negative (Negative); OPIATES URINE SCREEN Negative (Negative); Tricyclic Antidepressants Negative (Negative)
--- NOTE | 2023-11-27 07:54 | DI.VRAD_ITS ---
PROCEDURE INFORMATION: Exam: XR Right Hip Exam date and time: 11/27/2023 6:39 AM Age: 53 years old Clinical indication: Injury or trauma; Blunt trauma (contusions or hematomas); Hip and pelvic region; Injury details: Fall from standing, right hip/right pelvis pain TECHNIQUE: Imaging protocol: Radiologic exam of the right hip. Views: 2 or 3 views hip with pelvis when performed. COMPARISON: No relevant prior studies available. FINDINGS: Bones/joints: There is a curvilinear band of sclerosis in the right inferior femoral neck. There is a fracture deformity of the right femoral neck. No dislocation. Soft tissues: Unremarkable. IMPRESSION: Suspect subacute insufficiency fracture of the right femoral neck. CT may be of value. Dictated and Authenticated by: Mariah Gilbert MD. Ordering:ABHI Glez MD
[2023-11-27 07:57] LABS: Bacteria Rare HPF (Negative); Crystals Negative HPF (Negative); Epithelial Cells Moderate HPF (Negative); Mucus Negative (Negative); RBC Negative HPF (0-2)
[2023-11-27 07:58] LABS: C & S Indicated? No/Sq. Contamination; Casts Negative LPF (Negative)
--- NOTE | 2023-11-27 08:00 | DI.CT_ITS ---
Exam(s) CT PELVIC WO EXAM: CT PELVIC WO CLINICAL HISTORY: hip fracture. TECHNIQUE: Imaging Protocol: Axial computed tomography images with coronal and sagittal reformatted images were created and reviewed. COMPARISON: CR,XR XR HIP PELVIS ADULT BL from 11/27/2023 FINDINGS: Bones: There is an acute mildly comminuted fracture through the neck of the right femur. The fractu re is impacted. There is also mild superior subluxation of the distal fracture. There are degenerat lela changes seen in the lower visualized lumbar spine. No cellulitic or osteomyelitic changes are id entified. The left hip is well maintained. No lytic or sclerotic lesions are identified. Soft Tissues: There is a Peres catheter in place. Diverticulosis of the colon is seen, no evidence o f diverticulitis. IMPRESSION: Mildly impacted and comminuted oblique fracture through the neck of the right femur. RADIATION DOSE DELIVERED: 478.43mGy.cm Total DLP 478.43mGy.cmTotal DLP DATA REPOSITORY: All CT scans at this facility are submitted to the National Radiology Data Registry (NRDR) Dose Index Registry (DIR) with the [employer] ([employer]). RADIATION OPTIMIZATION: All CT scans at this facility use at least one of these dose optimization te chniques: automated exposure control; mA and/or kV adjustment per patient size (includes targeted exa ms where dose is matched to clinical indication); or iterative reconstruction.
[2023-11-27] MEDS: ACETAMINOPHEN 1,000 MG/100 ML BTL 400 MG IVPB (09:34)
--- NOTE | 2023-11-27 10:13 | W.ANESNERVE ---
Nerve Block Single Injection Procedure Date and Time Date Performed: 11/27/23 Procedure Start: 10:00 Location Where Procedure Performed Procedure Location: Emergency Department Reason Performed: Acute Pain Management Pain Diagnosis: Hip Pain Requesting Provider: Brent Solomon Timeout Performed Timeout Performed: Yes Monitoring Used ECG, Blood Pressure, SpO2 and See EMR for corresponding vital signs Sterility Sterility: Hand Hygiene, Surgical Cap, Surgical Mask, Sterile Gloves and Chlorhexidine Sedation Given During Procedure Sedation Given (Indicate Dose Given): No Sedation given Patient Mental Status Patient Mental Status: Awake Nerve Block 1st Nerve Block: Laterality: Right Block Type: LUKE Ultrasound Image Saved?: Yes Needle / Catheter Used: 100mm SonoPlex II Local Anesthetic Bolus (Indicate Dose Given): Lidocaine used for local infiltration of skin, Injected in 3-5ml increments after negative blood aspiration, Bupivacaine 0.5% Dose:: 10ml and Exparel Dose:: 10ml Additives (Indicate Dose Given): Normal Saline (5ml) Ultrasound: Sterile probe cover and gel used Nerve Stimulator: Not Used Paresthesia: None Procedure Tolerated: No Complications and Patient did not tolerate well (Once procedure started, pt. yelling in pain. Procedure straight forward, good US view.) Procedure Outcome: Successful Performed By: Tera Mcdonnell
--- NOTE | 2023-11-27 14:00 | RT.EKG_ITS ---
APPROVED REPORT Exam: Resting ECG Reason for Exam: tachy Patient Location: E HR:60 bpm ECG Measurements Heart Rate 60 AXIS LA 156 P 66 QRSd 93 QRS 83 QT 410 T 86 QTc 409 Conclusion Sinus rhythm 60 normal axis no stemi
== END 2023-11-27 14:22 | disposition home or self-care (01) ==
LOC: ER 09:36
PROVIDERS: Emergency Medicine Emergency Medical Services; Emergency Provider Emergency Medicine
DX: S72.011A Unspecified intracapsular fracture of right femur, initial encounter for closed fracture (principal); F17.210 Nicotine dependence, cigarettes, uncomplicated; W01.0XXA Fall on same level from slipping, tripping and stumbling without subsequent striking against object, initial encounter; Y93.K1 Activity, walking an animal; Y92.89 Other specified places as the place of occurrence of the external cause
CPT/HCPCS: 00123; 36415; 73521; 76942; 80048; 80307; 81025; 86850; 86900; 86901; 93005; 96374; 96375; 99285; 72192; 80320; 81003; 81015; 85025; 93010; 99284; C9290; J0131; J0665; J1885; J2270